=== PATIENT | female | born 1995 | race American Indian/Alaskan Native ===

== ENCOUNTER 2017-07-17 20:40 | Emergency (ER) | payer MEDICAID ==
[2017-07-17 21:04] VITALS: TEMP 98.8
[2017-07-17 21:14] VITALS: PULSE 78; O2SAT 99
[2017-07-17 22:44] VITALS: BP 122/68; RESP 18
[2017-07-17] MEDS ORDERED: TDAP Vaccine 0.5 mL Syr IM ONE (22:56)
[2017-07-17] MEDS ORDERED: Amoxicillin-Clav 875-125 mg Tab PO STA (22:56)
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
== END 2017-07-17 23:55 | disposition home or self-care (01) ==
LOC: ED 20:40
DX: S21.051A Open bite of right breast, initial encounter (principal); W50.3XXA Accidental bite by another person, initial encounter; Z23 Encounter for immunization